=== PATIENT | female | born 1955 | race Two or more races ===

== ENCOUNTER 2017-12-28 12:12 | Day surgery (SDC) | payer OTHER | END 2017-12-28 16:27 | disposition home or self-care (01) | LOC: GIL 12:12 | DX: K92.1 Melena (principal); K57.90 Diverticulosis of intestine, part unspecified, without perforation or abscess without bleeding; E78.5 Hyperlipidemia, unspecified; F17.200 Nicotine dependence, unspecified, uncomplicated | CPT/HCPCS: 45378 ==